=== PATIENT | male | born 2005 | race Hispanic/Latino ===

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

== ENCOUNTER 2023-01-14 18:39 | Emergency (ER) | payer OTHER, SELFPAY ==
[2023-01-14] MEDS ORDERED: Lidocaine 1% w/Epinephrine 1:100K 20 ML VIAL ONE (19:25)
[2023-01-14] MEDS ORDERED: Cephalexin 250 MG CAP ONE (20:01)
[2023-01-14] MEDS ORDERED: Ibuprofen 800 MG TAB ONE (20:01)
[2023-01-14] MEDS ORDERED: Sulfameth/Trimethoprim DS 800-160mg TAB ONE (20:01)
== END 2023-01-14 20:10 | disposition home or self-care (01) ==
LOC: ERS 18:39
DX: L72.3 Sebaceous cyst (principal)
CPT/HCPCS: 10060